=== PATIENT | male | born 1940 | race Caucasian/White ===

== ENCOUNTER 2017-11-12 14:39 | Emergency (ER) | payer OTHER ==
--- NOTE | 2017-11-12 15:05 | EDPHY ---
H & P Stated Complaint: rectal bleeding, fatigue Time Seen by Provider: 11/12/17 15:02 HPI/ROS: CHIEF COMPLAINT: Hematochezia HISTORY OF PRESENT ILLNESS: The patient presents to the ED after he experienced episodes of hematochezia 2 days in a row 5 days ago. The patient reports no recurrent symptoms. The patient denies any history of GI bleeding in the past. His last colonoscopy was 10 years ago and he did have a polyp at that point time. The patient does have a history of a pituitary tumor. The patient denies any acute abdominal pain. The patient was seen at urgent care referred to the ED for further workup of his resolved hematochezia. REVIEW OF SYSTEMS: A comprehensive 10 point review of systems is otherwise negative aside from elements mentioned in the history of present illness. Source: Patient Exam Limitations: No limitations - Personal History Current Tetanus/Diphtheria Vaccine: Unsure Current Tetanus Diphtheria and Acellular Pertussis (TDAP): Unsure - Medical/Surgical History Hx Asthma: No Hx Chronic Respiratory Disease: No Hx Diabetes: No Hx Cardiac Disease: No Hx Renal Disease: No Hx Cirrhosis: No Hx Alcoholism: No Hx HIV/AIDS: No Hx Splenectomy or Spleen Trauma: No Other PMH: pituitary adenoma, jaw surgery - Social History Smoking Status: Never smoked - Physical Exam Exam: General Appearance: Alert, no distress Eyes: Pupils equal and round no pallor or injection ENT, Mouth: Mucous membranes moist Respiratory: There are no retractions, lungs are clear to auscultation Cardiovascular: Regular rate and rhythm Gastrointestinal: Abdomen is soft and nontender, no masses, bowel sounds normal Rectal: Brown stool noted Neurological: 5/5 strength all 4 extremities Skin: Warm and dry, no rashes Musculoskeletal: Neck is supple nontender Extremities: symmetrical, full range of motion Constitutional: Initial Vital Signs Temperature (C) 36.7 C 11/12/17 14:45 Heart Rate 60 11/12/17 14:45 Respiratory Rate 16 11/12/17 14:45 Blood Pressure 128/76 H 11/12/17 14:45 O2 Sat (%) 93 11/12/17 14:45 O2 Delivery Mode Room Air Allergies/Adverse Reactions: No Known Allergies Allergy (Unverified 11/12/17 14:44) Home Medications: Medication Instructions Recorded [place] 11/12/17 Medical Decision Making ED Course/Re-evaluation: The patient presents to the ED for evaluation of resolved hematochezia. The patient is noted to be hemodynamically stable. He has guaiac-negative brown stool noted on exam today. The patient's hematocrit demonstrates no evidence of a critical anemia. The patient will be advised to follow up with Gastroenterology for further evaluation and likely colonoscopy given his age in the time that has lapsed since his prior evaluation. The patient is advised to return to the ED for markedly worsening symptoms of weakness, recurrent heavy bleeding, pain or other concerns. I re-evaluated the patient at 4pm. His vital signs are stable. I reviewed his laboratory testing. I have referred him to our hvac sales engineer. I have stressed to him the importance of close follow-up for further evaluation of his hematochezia. He has been provided aftercare instructions and return precautions. Differential Diagnosis: Differential diagnosis considered includes upper GI bleed, lower GI bleed, critical anemia, external hemorrhoid - Data Points Laboratory Results: Laboratory Results 11/12/17 15:35 11/12/17 15:35 11/12/17 11/12/17 11/12/17 15:35 15:35 15:35 WBC 5.26 10^3/uL 10^3/uL (3.80-9.50) RBC 4.21 10^6/uL L 10^6/uL (4.40-6.38) Hgb 12.7 g/dL L g/dL (13.7-17.5) Hct 37.3 % L % (40.0-51.0) MCV 88.6 fL fL (81.5-99.8) MCH 30.2 pg pg (27.9-34.1) MCHC 34.0 g/dL g/dL (32.4-36.7) RDW 14.7 % % (11.5-15.2) Plt Count 201 10^3/uL 10^3/uL (150-400) MPV 9.7 fL fL (8.7-11.7) Neut % (Auto) 43.4 % % (39.3-74.2) Lymph % (Auto) 40.9 % % (15.0-45.0) [place] % (Auto) 10.3 % % (4.5-13.0) Eos % (Auto) 4.8 % % (0.6-7.6) Baso % (Auto) 0.4 % % (0.3-1.7) Nucleat RBC Rel Count 0.0 % % (0.0-0.2) Absolute Neuts (auto) 2.29 10^3/uL 10^3/uL (1.70-6.50) Absolute Lymphs (auto) 2.15 10^3/uL 10^3/uL (1.00-3.00) Absolute Monos (auto) 0.54 10^3/uL 10^3/uL (0.30-0.80) Absolute Eos (auto) 0.25 10^3/uL 10^3/uL (0.03-0.40) Absolute Basos (auto) 0.02 10^3/uL 10^3/uL (0.02-0.10) Absolute Nucleated RBC 0.00 10^3/uL 10^3/uL (0-0.01) Immature Gran % 0.2 % % (0.0-1.1) Immature Gran # 0.01 10^3/uL 10^3/uL (0.00-0.10) PT 12.7 SEC SEC (12.0-15.0) INR 0.93 (0.83-1.16) APTT 32.4 SEC SEC (23.0-38.0) Sodium 136 mEq/L mEq/L (135-145) Potassium 4.4 mEq/L mEq/L (3.3-5.0) Chloride 101 mEq/L mEq/L (97-110) Carbon Dioxide 25 mEq/l mEq/l (22-31) Anion Gap 10 mEq/L mEq/L (8-16) BUN 22 mg/dL mg/dL (7-23) Creatinine 0.9 mg/dL mg/dL (0.7-1.3) Estimated GFR > 60 Glucose 85 mg/dL mg/dL (70-100) Calcium 8.8 mg/dL mg/dL (8.5-10.4) Stool Occult Bld Scrn 11/12/17 15:21 WBC RBC Hgb Hct MCV MCH MCHC RDW Plt Count MPV Neut % (Auto) Lymph % (Auto) [place] % (Auto) Eos % (Auto) Baso % (Auto) Nucleat RBC Rel Count Absolute Neuts (auto) Absolute Lymphs (auto) Absolute Monos (auto) Absolute Eos (auto) Absolute Basos (auto) Absolute Nucleated RBC Immature Gran % Immature Gran # PT INR APTT Sodium Potassium Chloride Carbon Dioxide Anion Gap BUN Creatinine Estimated GFR Glucose Calcium Stool Occult Bld Scrn NEGATIVE (NEGATIVE) Departure - Departure Disposition: Home, Routine, Self-Care Clinical Impression: Hematochezia Condition: Good Instructions: Rectal Bleeding (ED) Additional Instructions: 1. Please contact the hvac sales engineer you have been referred to and schedule a colonoscopy for further evaluation of your history of bleeding. It is imperative that you contact the hvac sales engineer for a follow-up visit within the week so that further serious conditions can be excluded such as colon cancer. 2. Return to the ED for markedly worsening pain, recurrent bleeding or other concerns. Referrals: Juarez Roman MD [Medical Doctor] - As per Instructions
[2017-11-12 15:45] LABS: PLATELET COUNT 201 10^3/uL (150-400)
[2017-11-12 15:54] LABS: INR 0.93 (0.83-1.16); PROTIME(PATIENT) 12.7 SEC (12.0-15.0)
[2017-11-12 16:38] VITALS: BP 132/87
== END 2017-11-12 16:39 | disposition home or self-care (01) ==
DX: K92.1 Melena (principal)

== ENCOUNTER 2018-04-02 09:18 | Emergency (ER) | payer OTHER ==
--- NOTE | 2018-04-02 09:54 | EDPHY ---
H & P Stated Complaint: abd pain Source: Patient - Personal History Current Tetanus/Diphtheria Vaccine: Yes Current Tetanus Diphtheria and Acellular Pertussis (TDAP): Yes - Medical/Surgical History Hx Asthma: No Hx Chronic Respiratory Disease: No Hx Diabetes: No Hx Cardiac Disease: No Hx Renal Disease: No Hx Cirrhosis: No Hx Alcoholism: No Hx HIV/AIDS: No Hx Splenectomy or Spleen Trauma: No Other PMH: pituitary adenoma, jaw surgery, shoulder surgery 2008 - Social History Smoking Status: Never smoked Time Seen by Provider: 04/02/18 09:22 HPI/ROS: CHIEF COMPLAINT: Abdominal pain History by patient HISTORY OF PRESENT ILLNESS: 77-year-old man with generally good health presents complaining of 3-5 days of worsening abdominal pain. Patient states pain is there constantly but gets worse when he eats and becomes sharp. He feels that all over but also mostly on the left side. He has had some episodes of some loose stools associated with foul-smelling liquid but no blood. Patient was seen for hematochezia about 5 months ago and referred for colonoscopy which he never had. Patient denies any fever chills. He has had no nausea or vomiting but has lost his appetite. Patient had hernia repair on his left side but no other abdominal surgeries. Patient has had mild achy associated back pain. He denies any urinary symptoms. He denies any fevers but has had some occasional night sweats and does say he has been losing some weight. REVIEW OF SYSTEMS: As in HPI, and all other systems reviewed and are negative (Gemma Robertson) - Physical Exam Exam: General Appearance: Alert, nontoxic-appearing. Eyes: Pupils equal and round, extraocular movements intact, no pallor or injection. Mouth: Mucous membranes moist. Pharynx clear Respiratory: Normal, effort, lungs are clear to auscultation. No wheezes, rales or rhonchi. Cardiovascular: Regular rate and rhythm. S1, S2, no murmurs, gallops or rubs appreciated Gastrointestinal: bowel sounds present, Abdomen is soft and mild left lower quadrant tenderness, no masses Back: No CVA tenderness, no bony tenderness Neurological: Awake, alert and oriented x 3, no pronator drift, normal gait, no pronator drift Skin: Warm and dry, no rashes. Musculoskeletal: No deformities or tenderness. Extremities: full range of motion, no edema Psychiatric: Patient has normal affect, there is no agitation. (Gemma Robertson) Constitutional: Initial Vital Signs Temperature (C) 36.5 C 04/02/18 09:41 Heart Rate 52 L 04/02/18 09:41 Respiratory Rate 18 04/02/18 09:41 Blood Pressure 117/72 18 09:41 O2 Sat (%) 96 04/02/18 09:41 O2 Delivery Mode Room Air Allergies/Adverse Reactions: No Known Allergies Allergy (Verified 04/02/18 09:40) Home Medications: Medication Instructions Recorded [place] 11/12/17 Medical Decision Making - Diagnostics Imaging Results: Imaging Impressions Abdomen CT 04/02/18 09:51 Impression: 1. Liver mass of undetermined etiology or chronicity, incompletely evaluated on this study. 2. Nonspecific short segment of thickened small bowel in the left upper pelvis. A repeat CT with oral contrast might be useful. 3. Limited intra-abdominal fat does decrease sensitivity. 4. Findings suggest elevated right heart pressures +- changes related to the patient's rotoscoliosis. Results discussed with Gemma Robertson MD at 10:56 AM. General information for patients regarding this examination can be found at [facility]. If you have questions or comments about this report, please contact me at (hospital) or [phone] (cell). Abdomen CT 04/02/18 11:04 Impression: 1. The liver lesion is not a benign hemangioma. 2. Contrast kinetics suggest a low or restricted cardiac output vs low/in the IVC secondary to # 4 below. 3. No small bowel abnormality identified. 4. Possible IVC thrombus (or tumor) extending into the common iliac veins versus flow artifact. Is there any lower extremity swelling? Recommendation: Consider ultrasound of the IVC, lower pelvic veins and leg veins to assess for normal phasicity as well as for clot detection. Results discussed with Dr. Robertson at 1:56 PM General information for patients regarding this examination can be found at [facility]. If you have questions or comments about this report, please contact me at (hospital) or [phone] (cell). Abdomen Ultrasound 04/02/18 11:39 Impression:1. The ultrasound is not helpful in evaluating the liver lesion. Recommend liver MRI without and with contrast for further evaluation. 2. CT findings in the inferior vena cava are likely related to elevated right heart pressures and/or generalized low cardiac output. Please note that the heart was not enlarged and there is no pericardial effusion on the CT of the abdomen and pelvis done earlier in the day. 2. Ultrasound and Venous Duplex Doppler Study of Both the Right and Left Lower Extremities History: Possible DVT vs intraluminal mass involving the IVC and common iliac veins. Technique: High frequency transducer was used for imaging and Doppler study of the veins of the right and left lower extremities. Spectral Doppler and color Doppler were utilized, along with various maneuvers to assess flow in the veins. Findings: There is generalized low flow in both legs, left greater than right, with bilateral dilated veins, greatest proximally. Right: The deep veins of the right lower extremity are normally compressible between the groin and the upper calf. They have normal Doppler waveforms within them. No venous thrombosis is identified. There are prominent varicosities in the right calf with extremely slow flow. Left: The deep veins of the left lower extremity are normally compressible between the groin and the upper calf. They have normal Doppler wave forms within them. No venous thrombus is identified. There is a thick-walled centrally liquefied mass in the medial left knee and measures approximately 4.6 x 2.6 x 7.2 cm. There is central nodularity associated with the central cystic cavity. Impression: 1. No evidence of deep vein thrombosis in the right or left lower extremity. 2. Slow flow is consistent with the findings in the abdomen described above. 3. Necrotic mass medial left knee. Recommend MRI without and with contrast for further evaluation. A message was left for Dominic Vital M.D. at 3:33 PM. Knee X-Ray 04/02/18 16:11 Impression: Osteoarthritis and remote trauma to the knee. No correlate to the finding on the leg ultrasound done earlier at 14:21. Knee MRI is again recommended. 3 view x-ray of knee - degenerative changes by my interpretation. (Dominic Vital) ED Course/Re-evaluation: 77-year-old man presents complaining of several days of left-sided abdominal pain and some change in stool habits. Here patient is afebrile and hemodynamically stable with some mild left upper quadrant tenderness. Patient declined pain medicines in the emergency department. Chemistries are unremarkable. I was concerned about diverticulitis so a CT scan of the abdomen pelvis was obtained. This was read as a of right liver mass for which the radiologist recommended follow-up with an ultrasound, elevated right heart pressure due to engorged veins an a short segment of thickened dilated small bowel in the left lower quadrant is poorly characterized. Radiologist recommended repeating the scan with oral contrast to better clarify this. This has been ordered. Labs are notable for hematuria and urine was sent for culture. CBC still pending. Repeat CT scan showed that the liver mass was not hemangioma. Radiologist recommended follow-up with a ultrasound. In addition there was concern for IVC thrombosis and so IVC ultrasound as low as bilateral lower extremity ultrasound was recommended by the radiologist. This was ordered and is pending at time dictation. At this time I will transfer care to Dr. Dominic Vital for final disposition pending results of the ultrasound. (Gemma Robertson) I spoke with Dr. Lockett regarding this patient's ultrasound reports-no pelvic thrombosis or IVC thrombosis. No lower extremity DVTs. He noticed degenerative changes to the left knee and questioned mass to left knee on ultrasound of the lower extremity. On repeat exam of the patient-currently no significant tenderness except minimal left lower tenderness on exam no guarding or rebound. On extremity exam he does have mild swelling to the left knee which she says is chronic but no significant effusion. I spoke with Dr. Wheatley, oncologist on-call to facilitate follow-up for further evaluation of hepatic lesion as an outpatient. He will cm in the oncology office either later this week or early next week. Patient is noted to have bradycardia in the high 40s and when inquired about this he explains that he is a long-term runner and usually has bradycardia baseline. Due to findings on CT questioning low cardiac flow, an EKG is performed which reveals sinus bradycardia without significant abnormalities by my interpretation except for some LVH. The patient feels well exception minimal discomfort to the belly and would like to proceed home. I suspect that he has a viral illness causing his loose stools and mild cramping. We ruled out diverticulitis with the CT. What appeared to be potential clot on CT was artifact based on ultrasound is negative for pelvic thrombosis or lower extremity DVTs. He understands the need for close follow-up with oncology regarding his liver lesion. The findings are consistent with degenerative changes. (Dominic Vital) - Data Points Laboratory Results: Laboratory Results 04/02/18 09:35 04/02/18 04/02/18 04/02/18 10:12 09:58 09:35 WBC 9.32 10^3/uL 10^3/uL (3.80-9.50) RBC 4.31 10^6/uL L 10^6/uL (4.40-6.38) Hgb 12.9 g/dL L g/dL (13.7-17.5) Hct 38.2 % L % (40.0-51.0) MCV 88.6 fL fL (81.5-99.8) MCH 29.9 pg pg (27.9-34.1) MCHC 33.8 g/dL g/dL (32.4-36.7) RDW 14.6 % % (11.5-15.2) Plt Count 242 10^3/uL 10^3/uL (150-400) MPV 10.3 fL fL (8.7-11.7) Neut % (Auto) 71.7 % % (39.3-74.2) Lymph % (Auto) 18.8 % % (15.0-45.0) [place] % (Auto) 8.2 % % (4.5-13.0) Eos % (Auto) 0.9 % % (0.6-7.6) Baso % (Auto) 0.1 % L % (0.3-1.7) Nucleat RBC Rel Count 0.0 % % (0.0-0.2) Absolute Neuts (auto) 6.69 10^3/uL H 10^3/uL (1.70-6.50) Absolute Lymphs (auto) 1.75 10^3/uL 10^3/uL (1.00-3.00) Absolute Monos (auto) 0.76 10^3/uL 10^3/uL (0.30-0.80) Absolute Eos (auto) 0.08 10^3/uL 10^3/uL (0.03-0.40) Absolute Basos (auto) 0.01 10^3/uL L 10^3/uL (0.02-0.10) Absolute Nucleated RBC 0.00 10^3/uL 10^3/uL (0-0.01) Immature Gran % 0.3 % % (0.0-1.1) Immature Gran # 0.03 10^3/uL 10^3/uL (0.00-0.10) POC Sodium 132 mEq/L L mEq/L (135-145) POC Potassium 4.1 mEq/L mEq/L (3.3-5.0) POC Chloride 93.0 mEq/L L mEq/L (97-110) POC Total CO2 26 mEq/L mEq/L (22-31) POC BUN 12 mg/dL mg/dL (7-23) POC Creatinine 1.0 mg/dL mg/dL (0.7-1.3) POC Glucose 81 mg/dL mg/dL (70-100) POC Calcium 9.0 mg/dL mg/dL (8.5-10.4) POC Total Bilirubin 1.0 mg/dL mg/dL (0.1-1.4) POC GGT 11 IU/L IU/L (5-65) POC AST 31 IU/L IU/L (17-59) POC ALT 10 IU/L L IU/L (21-72) POC Alk Phosphatase 69 IU/L IU/L (38-126) POC Total Protein 6.7 g/dL g/dL (6.3-8.2) POC Albumin 4.0 g/dL g/dL (3.5-5.0) POC Amylase 78 IU/L IU/L (30-110) Medications Given: Discontinued Medications Diatrizoate Meglum/Diatrizoate Sod (Gastroview 66-10 Soln) 30 ml PO EDNOW ONE Stop: 04/02/18 11:05 Last Admin: 04/02/18 12:58 Dose: 30 ml Point of Care Test Results: Chemistry 04/02/18 04/02/18 10:12 09:58 POC Sodium 132 mEq/L L mEq/L (135-145) POC Potassium 4.1 mEq/L mEq/L (3.3-5.0) POC Chloride 93.0 mEq/L L mEq/L (97-110) POC Total CO2 26 mEq/L mEq/L (22-31) POC BUN 12 mg/dL mg/dL (7-23) POC Creatinine 1.0 mg/dL mg/dL (0.7-1.3) POC Glucose 81 mg/dL mg/dL (70-100) POC Calcium 9.0 mg/dL mg/dL (8.5-10.4) POC Total Bilirubin 1.0 mg/dL mg/dL (0.1-1.4) POC GGT 11 IU/L IU/L (5-65) POC AST 31 IU/L IU/L (17-59) POC ALT 10 IU/L L IU/L (21-72) POC Alk Phosphatase 69 IU/L IU/L (38-126) POC Total Protein 6.7 g/dL g/dL (6.3-8.2) POC Albumin 4.0 g/dL g/dL (3.5-5.0) POC Amylase 78 IU/L IU/L (30-110) Liver Function Tests LFT Collection Date 04/02/18 LFT Collection Time 09:35 Urine Dip Collection Date 04/02/18 Collection Time 10:05 Specific [place] (1.002-1.030) 1.015 PH (5.0-7.5) 6.5 Leukocytes (Negative) Negative Nitrites (Negative) Negative Protein (Negative) Negative Glucose (Negative) Negative Ketones (Negative) Negative Urobilnogen (0.2-1.0 EU) 0.2 Bilirubin (Negative) Negative Blood (Negative) 1+ Departure - Departure Disposition: Home, Routine, Self-Care Clinical Impression: Liver mass, Abdominal pain, left lower quadrant, Sinus bradycardia Hematuria Qualifiers: Hematuria type: unspecified type Qualified Code(s): R31.9 - Hematuria, unspecified Degenerative joint disease of knee, left Qualifiers: Osteoarthritis type: primary Qualified Code(s): M17.12 - Unilateral primary osteoarthritis, left knee Condition: Good Instructions: Acute Abdominal Pain (ED) Additional Instructions: Diagnosis: 1. Abdominal pain 2. Liver lesion 3. Degenerative joint disease left knee Plan: Call Dr. Wheatley, number listed below-oncologist for further evaluation of your liver lesion. Light diet until your belly pain feels improved. Drink plenty fluids Follow up with primary care physician regarding any ongoing abdominal pain. Anti-inflammatories and Tylenol as needed for knee pain Return emergency department for any significant worsening despite the treatment plan Referrals: PATSY OSHEA [Primary Care Provider] - As per Instructions Charles Wheatley MD [Medical Doctor] - As per Instructions
[2018-04-02] MEDS ORDERED: IOPAMIDOL (ISOVUE-300) 100 ML BTL ONE ×2 (10:08→12:59)
[2018-04-02] MEDS ORDERED: GASTROVIEW 30 ML UNIT PO ONE (11:04)
[2018-04-02 11:22] LABS: PLATELET COUNT 242 10^3/uL (150-400)
[2018-04-02 16:57] VITALS: BP 120/70
--- NOTE | 2018-04-02 20:31 | CPEKG ---
Test Reason : OPEN Blood Pressure : / mmHG Vent. Rate : 048 BPM Atrial Rate : 048 BPM P-R Int : 235 ms QRS Dur : 098 ms QT Int : 498 ms P-R-T Axes : 050 027 062 degrees QTc Int : 445 ms Sinus bradycardia Prolonged [place] interval Probable left ventricular hypertrophy Confirmed by Dominic Vital ([id number]) on 04/02/2018 8:30:40 PM Referred By: Confirmed By:Dominic Vital
== END 2018-04-02 16:56 | disposition home or self-care (01) ==
LOC: CED 09:18
DX: R16.0 Hepatomegaly, not elsewhere classified (principal); R31.9 Hematuria, unspecified; M17.12 Unilateral primary osteoarthritis, left knee; R00.1 Bradycardia, unspecified
CPT/HCPCS: 73562; 74177; 76705; 93005; 93970; 99285; Q9967; 80048-PO; 80076-PO; 82150-PO

== ENCOUNTER → 2018-04-09 | Outpatient (CLI) | payer OTHER ==
[~2018-04-09] MED LIST: GADOBUTROL 10 ML VIAL IVP ONE
== END ==
LOC: FIMAGING 13:10
PROVIDERS: ATTEND Internal Medicine Hematology & Oncology
DX: R93.7 Abnormal findings on diagnostic imaging of other parts of musculoskeletal system (principal)
CPT/HCPCS: 74183; A9585